=== PATIENT | female | born 1980 | race Caucasian/White ===

== ENCOUNTER 2019-10-21 12:00 | Emergency (ER) | payer OTHER ==
[~2019-10-21] VITALS: Ht 167.7 cm; Wt 58.9 kg
--- NOTE | 2019-10-21 12:25 | ED Lower Extremity ---
General Chief Complaint: Foreign Body Stated Complaint: SEWING NEEDLE STUCK IN R FOOT Nursing Triage Note: Sewing needle "broke off" in R palmar apect of foot. Mild redness and swelling surrounding puncture site. Nursing Sepsis Screen: No Definite Risk Source: patient Exam Limitations: no limitations (BUCK MORALES MEDICAL STUDENT) History of Present Illness Date Seen by Provider: Oct 21, 2019 Time Seen by Provider: 12:15 Initial Comments Pt is a 39 yo F who ambulates to the ED complaining of a needle lodged in her R foot. She stepped on a sewing needle and states that part of it broke off. She made no attempt to dislodge the needle; she says she initially thought she "would try and keep it, but it hurts too much." She does not know the date of her last tetanus vaccination. Onset: other (4 days ago) Severity: mild Pain/Injury Location: right foot Method of Injury: other (puncture) Modifying Factors: Worse With Movement (BUCK MORALES MEDICAL STUDENT) Initial Comments Patient reports she has named the needle "Pokey" and would like it removed, since it has become painful. (MIKEL PHOENIX) Allergies and Home Medications Allergies Coded Allergies: codeine (Verified Allergy, Unknown, 10/21/19) Home Medications Cephalexin 500 Mg Tablet, 500 MG PO TID Prescribed by: MIKEL PHOENIX on 10/21/19 1331 Patient Home Medication List Home Medication List Reviewed: Yes (BUCK MORALES) Home Medication List Reviewed: Yes (MIKEL PHOENIX) Review of Systems Constitutional: No chills, No fever EENTM: no symptoms reported Respiratory: no symptoms reported Cardiovascular: no symptoms reported Gastrointestinal: no symptoms reported Genitourinary: no symptoms reported : No (bilateral tubal ligation) Musculoskeletal: no symptoms reported Skin: other (puncture wound and pain in plantar aspect of R lateral midfoot) Psychiatric/Neurological: No Symptoms Reported (BUCK MORALES STUDENT) Past Tvhgcle-Dazolk-Nihujx Hx Patient Social History Alcohol Use: Denies Use Recreational Drug Use: No Smoking Status: Never a Smoker 2nd Hand Smoke Exposure: No Recent Foreign Travel: No Contact w/Someone Who Travel: No Recent Infectious Disease Expo: No Recent Hopitalizations: No (BUCK MORALES) Seasonal Allergies Seasonal Allergies: No (COOLMAN,BUCK MEDICAL STUDENT) Past Medical History Surgeries: Yes (Food bolus (EGD)) Gallbladder, Tubal Ligation Respiratory: No Cardiac: No Neurological: No Genitourinary: No Gastrointestinal: No Musculoskeletal: No Endocrine: No HEENT: No Cancer: No Psychosocial: No (BUCK MORALES MEDICAL STUDENT) Family Medical History Reviewed Nursing Family Hx (BUCK MORALES MEDICAL STUDENT) Physical Exam Vital Signs Vital Signs - First Documented 10/21/19 12:05 Temp 36.5 Pulse 66 Resp 16 B/P (MAP) 115/73 (87) Pulse Ox 100 O2 Delivery Room Air (MIKEL PHOENIX) Vital Signs Capillary Refill : Less Than 3 Seconds (BUCK MORALES MEDICAL STUDENT) Height, Weight, BMI Height: '" Weight: lbs. oz. kg; 20.00 BMI Method: General Appearance: WD/WN, no apparent distress Cardiovascular: regular rate, rhythm, no murmur Respiratory: chest non-tender, lungs clear, normal breath sounds Ankles: bilateral ankle non-tender, bilateral ankle normal range of motion Feet: left foot normal inspection; right foot normal range of motion; left foot no evidence of injury; right foot pain (pin-sized, punctate lesion, surrounded circumferentially by 1 cm of mild erythema. No purulent drainage or swelling.) Neurologic/Tendon: normal sensation, normal motor functions Skin: normal color, warm/dry Lymphatic: no adenopathy (BUCK MORALES MEDICAL STUDENT) Neurologic/Psychiatric: no motor/sensory deficits, alert, normal mood/affect, oriented x 3 Skin: other (small puncture site to mid-plantar surface on right foot. No urinary 3 Aspen, drainage or warmth. Tender to palpation.) (MIKEL PHOENIX) Procedures/Interventions I&D : Site: right foot plantar surface Blade Size: 11 I & D Procedure: betadine prep Progress Skin prepped with Betadine, skin inflitrated with 1% lidocaine, 3 Ml. 11 blade used for puncture wound, anterior small amount of purulent drainage, culture obtained. After Multiple attempts to remove the needle, without success, will use fluoroscopy. X-ray notified. 1300 Additional 2 mls of Lidocaine 1 ml injected to skin, with x-ray staff, Fluorscopy lmft views completed and identified location of needle. Removed on next attempt with hemostat. Will copiously irrigated with 500 ML's of sterile saline and Hibiclens. Triple a robotic ointment and bulky sterile dressing a pplied. Patient tolerated procedure well. (MIKEL PHOENIX) Progress/Results/Core Measures Results/Orders My Orders Orders - MIKEL PHOENIX Foot, Right, 3 View (10/21/19 12:13) Lidocaine 1% Inj 20 Ml (Xylocaine 1% Inj (10/21/19 12:45) Fluoroscopy (10/21/19 ) Dipht,Pertuss(Acell),Tet Adult (Boostrix (10/21/19 13:30) Wound Culture (10/21/19 13:00) (MIKEL PHOENIX) Medications Given in ED Current Medications Medications Dose Ordered Sig/Giselle Route Start Time Stop Time Status Last Admin Dose Admin Diphtheria/ Tetanus/Acell Pertussis 0.5 ml ONCE ONCE IM 10/21/19 13:30 10/21/19 13:31 DC 10/21/19 13:33 0.5 ML Lidocaine HCl 20 ml ONCE ONCE INJ 10/21/19 12:45 10/21/19 12:46 DC 10/21/19 12:44 20 ML (MIKEL PHOENIX) Vital Signs/I&O 10/21/19 10/21/19 12:05 13:39 Temp 36.5 36.5 Pulse 66 75 Resp 16 17 B/P (MAP) 115/73 (87) 118/91 (87) Pulse Ox 100 99 O2 Delivery Room Air Room Air (MIKEL PHOENIX) Blood Pressure Mean: 87 Progress Progress Note : Time: 12:15 Progress Note Patient seen and evaluated, will obtain x-ray of the right foot and reevaluate. Will give tetanus. 1240 x-ray results discussed with patient recommended local anesthetic and attempted to remove the foreign body. Patient agreeable with this plan of care. 1320 discharge instructions and return precautions reviewed with the patient. All questions answered. (MIKEL PHOENIX) Departure Impression Primary Impression: Foreign body in right foot Qualified Codes: S90.851A - Superficial foreign body, right foot, initial encounter Disposition: HOME, SELF-CARE Condition: Improved Departure-Patient Inst. Decision time for Depature: 13:20 (MIEKL PHOENIX) Referrals: [facility] [place]IC[place] (PCP) Primary Care Physician Patient Instructions: Foreign Body in Skin (DC) Add. Discharge Instructions: Ice and elevate right foot for 20 minutes every 2 hours as needed for pain or swelling. You may alternate between Tylenol 650 mg and ibuprofen 600 mg every 4 hours for pain. Take antibiotics as prescribed. Do not immerse right foot in standing water (bathtub, hot tub, swimming pool, etc). Clean wound to right foot with peroxide and apply triple antibiotic ointment 3 times a day. Follow-up with your primary care provider as needed. Return to the emergency department for new, urgent health care needs. All discharge instructions reviewed with patient and/or family. Voiced understanding. Scripts Cephalexin (Cephalexin) 500 Mg Tablet 500 MG PO TID, #15 TAB 0 Refills Prov: MIKEL PHOENIX 10/21/19 Work/School Note: Work Release Form Date Seen in the Emergency Department: Oct 21, 2019 Return to Work: Oct 22, 2019 Restrictions: No Restrictions BUCK MORALES MEDICAL STUDENT Oct 21, 2019 12:25 MIKEL PHOENIX Oct 21, 2019 13:32
[2019-10-21] MEDS ORDERED: LIDOCAINE 1% INJ 20 ML 20 ML VIAL INJ ONE (12:45)
--- NOTE | 2019-10-21 12:47 | Diagnostic Imaging Report ---
INDICATION: Stepped on sewing needle. FINDINGS: A linear metallic retained opaque foreign body measures a maximal length as seen in the lateral view at 1.3 cm in its superficial margin. This may be a few millimeters deep to the skin surface itself but showed no osseous involvement and is near the level of the cuboid and projects at the level of the cuboid and base of the 5th metatarsal in the frontal and oblique views. No fracture. No other foreign body. IMPRESSION: Linear metallic plantar foreign body in the foot measures at least 13 mm in maximum measured dimensions it appears superficial near the plantar skin surface . No bony involvement. Dictated by: Dictated on workstation # [id number]
[2019-10-21] MEDS ORDERED: TETANUS,DIPTH,PERTUSS P/F (BOOSTRIX) 0.5 ML VIAL IM ONE (13:30)
[2019-10-21] MEDS ORDERED: CEPH500T PO (13:31)
[2019-10-21 13:39] VITALS: BP 118/91
--- NOTE | 2019-10-21 13:49 | Diagnostic Imaging Report ---
HISTORY: Foreign body removal. TECHNIQUE: Fluoroscopy was used during the patient's procedure. Two images were saved. Fluoroscopy time: 2.1 seconds COMPARISON: Foot radiograph from the same day. FINDINGS: Images redemonstrated foreign body at the plantar aspect of the right foot, with nearby surgical instrument. IMPRESSION: 1. Intraoperative fluoroscopy used for the patient's procedure. Dictated by: Dictated on workstation # [id number]
== END 2019-10-21 13:39 | disposition home or self-care (01) ==
LOC: ER 12:02
DX: S90.851A Superficial foreign body, right foot, initial encounter (principal); Z88.5 Allergy status to narcotic agent; Z23 Encounter for immunization; W27.3XXA Contact with needle (sewing), initial encounter
CPT/HCPCS: 73630; 87070; 87077; 87205; 90715

== ENCOUNTER 2022-06-02 19:14 | Emergency (ER) | payer OTHER ==
[~2022-06-02 19:14] MED LIST: CEPH500T PO
[2022-06-02 19:22] VITALS: BP 151/81
[2022-06-02] MEDS ORDERED: LACTATED RINGERS 1,000 ML IV ONE (19:45)
--- NOTE | 2022-06-02 19:48 | ED GI ---
General Chief Complaint: Foreign Body Stated Complaint: CAN'T SWALLOW,N/V Nursing Triage Note: PT ARRIVAL TO ER WITH COMPLAINT OF FOOD BOLUS. PT STATES THAT SHE WAS EATING CHICKEN AND MARSHALLESE FOOD FOR DINNER AND CHOKED ON CHUNK OF CHICKEN. PT IS ABLE TO TALK AND BREATH OK, BUT IS DROOLING AND VOMITING. PT DOES HAVE HISTORY OF FOOD BOLUS. Source of Information: Patient, Other Exam Limitations: No Limitations History of Present Illness Date Seen by Provider: Jun 02, 2022 Time Seen by Provider: 19:26 Initial Comments Patient to the ER by private conveyance chief complaint that she had a food embolus from eating some Greek chicken tonight. She is had this happen 3 times in the past and Cem went to the ER and had end up having it extracted after working on it overnight. She has some nausea but no difficulty breathing. She has her tubes tied and cholecystectomy in the past. She does not follow with a primary care or endoscopist. She has never had esophageal dilatation. She is not having any diarrhea fevers chills cough. Allergies and Home Medications Allergies Coded Allergies: codeine (Verified Allergy, Unknown, 10/21/19) Patient Home Medication List Home Medication List Reviewed: Yes Cephalexin (Cephalexin) 500 Mg Tablet, 500 MG PO TID Prescribed by: MIKEL PHOENIX on 10/21/19 1331 Review of Systems Review of Systems Constitutional: No chills, No diaphoresis, No malaise EENTM: No Blurred Vision, No Double Vision Respiratory: Denies Cough, Denies Shortness of Air Cardiovascular: Denies Chest Pain, Denies Lightheadedness Gastrointestinal: Denies Abdominal Pain, Denies Constipated, Denies Diarrhea; Nausea; Denies Poor Fluid Intake, Denies Vomiting Genitourinary: Denies Burning, Denies Discharge Musculoskeletal: No back pain, No joint pain All Other Systems Reviewed Negative Unless Noted: Yes Past Bwokuus-Ucelug-Lqvexx Hx Patient Social History Tobacco Use?: No Use of E-Cig and/or Vaping dev: No Substance use?: No Alcohol Use?: Yes Alcohol type: Wine Alcohol Frequency: Several times a month Pt feels they are or have been: No Immunizations Up To Date Influenza Vaccine Up-to-Date: No; Not Current Seasonal Allergies Seasonal Allergies: No Past Medical History Surgeries: Yes (Food bolus (EGD)) Gallbladder, Tubal Ligation Respiratory: No Cardiac: No Neurological: No Genitourinary: No Gastrointestinal: No Musculoskeletal: No Endocrine: No HEENT: No Cancer: No Psychosocial: No Physical Exam Vital Signs Vital Signs - First Documented 06/02/22 19:22 Temp 36.6 Pulse 83 Resp 18 B/P (MAP) 151/81 (104) Pulse Ox 99 O2 Delivery Room Air Capillary Refill : Less Than 3 Seconds Height/Weight/BMI Height: '" Weight: lbs. oz. kg; 20.00 BMI Method: General Appearance: WD/WN, no apparent distress HEENT: PERRL/EOMI, pharynx normal Neck: non-tender, full range of motion, supple, normal inspection Respiratory: chest non-tender, lungs clear, normal breath sounds, no respiratory distress, no accessory muscle use Cardiovascular: normal peripheral pulses, regular rate, rhythm Extremities: normal range of motion, non-tender Neurologic/Psychiatric: alert, normal mood/affect, oriented x 3 Skin: normal color, warm/dry Progress/Results/Core Measures Results/Orders My Orders Vital Signs/I&O 06/02/22 19:22 Temp 36.6 Pulse 83 Resp 18 B/P (MAP) 151/81 (104) Pulse Ox 99 O2 Delivery Room Air Blood Pressure Mean: 104 Progress Progress Note : Time: 19:53 Progress Note While the nurse was attempting to start her IV the patient became nauseated and and vomited producing a large chunk of poorly masticated meat. She no longer has the sensation of foreign body in her esophagus. She was able to drink a cup of water with no issue. We will set her up with a list of local providers as well as follow-up appointment with Dr. Govea to discuss whether she needs endoscopy with esophageal dilatation etc. Patient declined IV fluids and lab at this time. Departure Impression Primary Impression: Foreign body in esophagus Qualified Codes: T18.108A - Unspecified foreign body in esophagus causing other injury, initial encounter Disposition: 01 HOME, SELF-CARE Condition: Improved Departure-Patient Inst. Decision time for Depature: 19:54 Referrals: RASHI GOVEA,LOCAL PHYSICIAN (PCP) Primary Care Physician Patient Instructions: LOCAL PHYSICIAN LIST, Removal of Foreign Body, Swallowed, Adult Add. Discharge Instructions: Please make follow-up appointment with a endoscopist such as Dr. Govea for further outpatient management of your recurrent esophageal obstruction. There is also a list of local providers that you can follow-up with for primary care. All discharge instructions reviewed with patient and/or family. Voiced understanding. Copy Copies To 1: RASHI GOVEA TITUS J Jun 02, 2022 19:48
== END 2022-06-02 20:06 | disposition home or self-care (01) ==
LOC: EDUNIT# 19:14 → ER 19:17
DX: T18.108A Unspecified foreign body in esophagus causing other injury, initial encounter (principal); Z28.310 Unvaccinated for COVID-19; W45.8XXA Other foreign body or object entering through skin, initial encounter

== ENCOUNTER → 2022-06-18 | Outpatient (CLI) | payer OTHER ==
[~2022-06-18] VITALS: Ht 167.7 cm; Wt 77.3 kg
[~2022-06-18] MED LIST changes: +PANT40TA2 PO; +SUCR1TAB36 PO
== END | disposition home or self-care (01) ==
LOC: PREOP 10:57
PROVIDERS: ATTEND Surgery
DX: Z01.818 Encounter for other preprocedural examination (principal)

== ENCOUNTER 2022-06-22 09:27 | Day surgery (SDC) | payer OTHER ==
[~2022-06-22] VITALS: Ht 168 cm; Wt 77.3 kg
[~2022-06-22 09:27] MED LIST changes: -PANT40TA2 PO; -SUCR1TAB36 PO
[2022-06-22] MEDS ORDERED: LACTATED RINGERS 1,000 ML IV STA (09:35)
[2022-06-22] MEDS ORDERED: HURRICAINE EXT TUBE (BENZOCAINE) XX PRN (09:45)
[2022-06-22 09:55] VITALS: BP 122/81
--- NOTE | 2022-06-22 11:21 | Progress Note-Pre Operative ---
Pre-Operative Progress Note Date of Available H&P: Jun 11, 2022 Date H&P Reviewed: Jun 22, 2022 Time H&P Reviewed: 10:57 History & Physical: H&P Reviewed, Patient Examed, No changes noted Pre-Operative Diagnosis: Dysphagia RASHI WESTBROOK DO Jun 22, 2022 11:21
[2022-06-22] MEDS ORDERED: LACTATED RINGERS 1,000 ML IV ONE (11:29)
[2022-06-22] MEDS ORDERED: MIDAZOLAM 2 MG/2 ML (VERSED) VIAL ONE (11:30)
[2022-06-22] MEDS ORDERED: proPOfol 200 MG/20 ML (DIPRIVAN) VIAL IV ONE (11:31)
[2022-06-22 11:50] VITALS: BP 118/78
[2022-06-22 11:55] VITALS: BP 111/73
--- NOTE | 2022-06-22 11:58 | Progress Note-Post Operative ---
Post-Operative Progess Note Surgeon (s)/Java Core Developer (s) Surgeon RASHI WESTBROOK DO Java Core Developer: None Pre-Operative Diagnosis Dysphagia Post-Operative Diagnosis Duodenal ulcer Gastritis Hiatal hernia Esophagitis Esophageal polyp Procedure & Operative Findings Date of Procedure 06/22/22 Procedure Performed/Findings EGD with hot biopsy removal of esophageal polyp EGD with bx PROCEDURE NOTE: After informed consent was obtained, the patient was brought to the endoscopy suite, placed in bed in left lateral decubitus position. She was administered IV sedation by the TURF KEEPER who then monitored vitals the entire time, heart rate, blood pressure and pulse ox and the scope was inserted down the mouth through the esophagus into the stomach. On the way down, noted some moderate esophagitis and an esophageal polyp; took a picture. Pushed into the stomach, pushed past the antrum and into the duodenum. In the duodenum found a large ulcer; biopsied this. Pulled back and did a biopsy of the antrum; there was some old blood here and possibly the beginnings of ulcers. Then retroflexed the scope, saw a very small hiatal hernia, took a picture of this and then pulled the scope into the GE junction. Took another picture of the hiatal hernia and then did a biopsy of the GE junction. I then used cautery to biopsy/remove the esophageal polyp. Pushed the scope back into the stomach and suctioned all the air out of the stomach. At this point pulled the scope up the esophagus. took pictures but did not see any obstruction and finally out the mouth. The patient tolerated the procedure, and she recovered in endoscopy suite. Anesthesia Type IV sedation by TURF KEEPER Estimated Blood Loss Estimated blood loss (mL): scant Specimens/Packing Specimens Removed duodenal ulcer bx antral bx body of stomach bx GE jxn bx Esophageal poly RASHI WESTBROOK DO Jun 22, 2022 11:58
[2022-06-22 12:00] VITALS: BP 114/77
[2022-06-22] MEDS ORDERED: SUCR1TAB36 PO (12:00)
[2022-06-22] MEDS ORDERED: PANT40TA2 PO (12:00)
--- NOTE | 2022-06-22 12:00 | Endoscopy Discharge Instruct ---
Endo Procedure/Findings Findings 1.: Duodenal Ulcer 2.: Gastritis 3.: Hiatal Hernia 4.: Other Findings (Esophageal polyp) Discharge Instructions - Activity: You might feel a little sleepy until tomorrow. This is due to the medicine you received to relax you. Until tomorrow, you should: NOT drive a car, operate machinery or power tools. NOT drink any alcoholic beverages. NOT make any important decisions or sign importortant papers. Do not return to work until tomorrow, unless otherwise instructed. Resume previous activities tomorrow. Diet: Start by taking liquids. If you tolerate liquids, advance to solid food. 1.: EGD in 6-8 weeks Notify Physician - If you experience excessive bleeding, unusual abdominal pain, fever, or chest pain, contact your doctor immediately. RASHI WESTBROOK DO Jun 22, 2022 12:00
[2022-06-22 12:38] VITALS: BP 112/86
[2022-06-22 12:45] VITALS: BP 112/86
--- NOTE | 2022-06-22 12:47 | Anesthesia-General Post-Op ---
MAC Patient Condition Mental Status/LOC: Same as Preop Cardiovascular: Satisfactory Nausea/Vomiting: Absent Respiratory: Satisfactory Pain: Controlled Complications: Absent Post Op Complications Complications None Follow Up Care/Instructions Patient Instructions None needed. Anesthesiology Discharge Order Discharge Order Patient is doing well, no complaints, stable vital signs, no apparent adverse anesthesia problems. No complications reported per nursing. JAZIEL SALAZAR CRNA Jun 22, 2022 12:47
== END 2022-06-22 12:45 | disposition home or self-care (01) ==
LOC: ENDO 09:27
PROVIDERS: ATTEND Surgery
DX: K22.81 Esophageal polyp (principal); K26.9 Duodenal ulcer, unspecified as acute or chronic, without hemorrhage or perforation; K44.9 Diaphragmatic hernia without obstruction or gangrene; K29.70 Gastritis, unspecified, without bleeding; K20.90 Esophagitis, unspecified without bleeding; K29.80 Duodenitis without bleeding; K25.9 Gastric ulcer, unspecified as acute or chronic, without hemorrhage or perforation
CPT/HCPCS: 84703; 88305